=== PATIENT | male | born 1950 | race Caucasian/White ===

== ENCOUNTER 2019-03-27 14:01 | Emergency (ER) | payer OTHER ==
[~2019-03-27] VITALS: Ht 170.2 cm; Wt 77.1 kg
[2019-03-27 14:26] VITALS: BP_SYST 119
--- NOTE | 2019-03-27 15:15 | NUR ---
Patient to ER bed 07 to gown for evaluation. Side rails up.
--- NOTE | 2019-03-27 15:16 | NUR ---
Pt brought by self, A&Ox4, pt presents to ER with redness/swelling on R hand and L side of face, afebrile, skin pink and warm, respirations even and unlabored, no discharge noted at this time.
--- NOTE | 2019-03-27 15:37 | NUR ---
Patient returned to waiting rm to facilitate critical inbound patient.
--- NOTE | 2019-03-27 16:33 | NUR ---
Patient to ER bed 5 to gown for evaluation. Side rails up. Report given to Cesar POSEY.
--- NOTE | 2019-03-27 16:42 | NUR ---
ER Dr. Ma at bedside examining patient.
[2019-03-27] MEDS ORDERED: LIDOCAINE 1% 10 MG/ML, 20 ML MDV INJ ONE (17:45)
[2019-03-27] MEDS ORDERED: cefTRIAXone 1 GM VIAL IM ONE (17:45)
[2019-03-27] MEDS ORDERED: KETOROLAC TROMETHAMINE 60 MG/2 ML VIAL IM ONE (17:45)
--- NOTE | 2019-03-27 18:42 | NUR ---
Patient given written and verbal discharge instructions and verbalizes understanding. ER MD discussed with patient the results and treatment provided. Patient in stable condition. ID arm band removed. Rx of Bactrim, [place] given. Patient educated on pain management and to follow up with PMD. Pain Scale 2/10. Opportunity for questions provided and answered. Medication side effect fact sheet provided.
== END 2019-03-27 18:42 | disposition home or self-care (01) ==
LOC: SED 14:01
DX: L02.511 Cutaneous abscess of right hand (principal); L03.113 Cellulitis of right upper limb
CPT/HCPCS: 87070; 87186; 96372; 99283; J0696; J1885; J2001

== ENCOUNTER 2022-11-08 20:12 | Emergency (ER) | payer OTHER, MEDICAID ==
[~2022-11-08] VITALS: Ht 172.7 cm; Wt 86.2 kg
[2022-11-08 20:51] VITALS: BP_SYST 158
== END 2022-11-08 22:01 | disposition left against medical advice (07) ==
LOC: SED 20:12
DX: H57.89 Other specified disorders of eye and adnexa (principal); Z53.21 Procedure and treatment not carried out due to patient leaving prior to being seen by health care provider

== ENCOUNTER 2023-02-14 09:31 | Emergency (ER) | payer BC, MEDICAID ==
[~2023-02-14] VITALS: Ht 175.3 cm; Wt 127.0 kg
[2023-02-14 09:31] VITALS: BP_SYST 101
--- NOTE | 2023-02-14 09:34 | NUR ---
Placed in room 1 . Placed on nuclear monitoring technician, blood pressure machine and pulse oximeter. To gown for exam. Side rails up.
--- NOTE | 2023-02-14 09:35 | NUR ---
Pt BIBA C?O possible fentanyl OD Pt states he smoked some meth Pt resting comfortably in bed AOX4 VSS Able to make needs known VSS Will continue to monitor
--- NOTE | 2023-02-14 09:36 | NUR ---
ER at bedside examining patient.
[2023-02-14 09:55] LABS: BASOPHILS # (AUTO) 0.1 K/uL (0.0-0.2); BASOPHILS % (AUTO) 1.1 % (0.0-2.0); EOSINOPHILS # (AUTO) 0.3 K/uL (0.0-0.4); EOSINOPHILS % (AUTO) 4.2 % (0.0-4.0); HEMATOCRIT 40.2 % (36-54); HEMOGLOBIN 13.3 g/dL (14.0-18.0); LYMPHOCYTES # (AUTO) 1.6 K/uL (1.0-5.5); LYMPHOCYTES % (AUTO) 24.8 % (20.5-51.5); MEAN CORPUSCULAR HEMOGLOBIN 31 pg (27-31); MEAN CORPUSCULAR HGB CONC 33 % (32-36); MEAN CORPUSCULAR VOLUME 94 fL (79.0-98.0); MONOCYTES # (AUTO) 0.4 K/uL (0.0-1.0); MONOCYTES % (AUTO) 6.9 % (1.7-9.3); PLATELET COUNT (AUTO) 279 K/uL (130-430); RED BLOOD CELL COUNT(AUTO) 4.28 MIL/uL (4.2-6.2); RED CELL DISTRIBUTION WIDTH 15.1 % (9.0-15.0); WHITE BLOOD COUNT (AUTO) 6.3 K/uL (4.8-10.8)
[2023-02-14 10:16] LABS: ANION GAP 13 (5-15); CALCIUM 8.4 mg/dL (8.4-11.0); CHLORIDE 102 mmol/L (98-107); CREATININE 1.34 mg/dL (0.55-1.30); GLUCOSE 279 mg/dL (70-99); UREA NITROGEN, BLOOD 13 mg/dL (8-21)
[2023-02-14 10:19] LABS: GFR AFRICAN AMERICAN 68 mL/min (>90)
[2023-02-14 10:27] LABS: ALANINE AMINOTRANSFERASE 27 U/L (12-78); ALBUMIN 3.4 g/dL (3.4-4.8); ALCOHOL, BLOOD 7 mg/dL (<10); ASPARTATE AMINOTRANSFERASE 27 U/L (10-37); TOTAL BILIRUBIN 0.5 mg/dL (0.0-1.0)
[2023-02-14 10:29] LABS: ACETAMINOPHEN < 1 ug/mL (1-30); ACETONE, SERUM NEGATIVE (NEGATIVE); C-REACTIVE PROTEIN QUANT < 0.2 mg/dL (0-0.5)
--- NOTE | 2023-02-14 10:35 | NUR ---
Pt refused to provide urine notified
--- NOTE | 2023-02-14 12:49 | NUR ---
Patient given written and verbal discharge instructions and verbalizes understanding. ER MD discussed with patient the results and treatment provided. Patient in stable condition. ID arm band removed. IV catheter removed intact and dressing applied, no active bleeding. Patient educated on pain management and to follow up with PMD. Pain Scale 0. Opportunity for questions provided and answered. Medication side effect fact sheet provided. Patient exited ED in uber in stable gait.
== END 2023-02-14 12:49 | disposition home or self-care (01) ==
LOC: SED 09:31
DX: F15.10 Other stimulant abuse, uncomplicated (principal); Z79.899 Other long term (current) drug therapy
CPT/HCPCS: 99285; 71045; 80053; 82009; 85025; 86140; 84484; 36415; 93005; 83605; G0482; G0480; G0481